=== PATIENT | female | born 1995 | race Caucasian/White ===

== ENCOUNTER 2023-08-19 07:40 | Inpatient (IN) | payer OTHER ==
[2023-08-19 09:17] VITALS: BMI 26.8
[2023-08-19] MEDS ORDERED: HYDROmorphone HCl 2 MG/ML VIAL ONE (10:39)
[2023-08-19] MEDS ORDERED: FENTANYL CITRATE/PF 50 MCG/ML VIAL ONE (10:39)
[2023-08-19] MEDS ORDERED: OXYTOCIN 30 UNITS in 0.9% NS 30 UNIT/500 ML INFUS.BAG IVPB ONE (10:39)
[2023-08-19] MEDS ORDERED: CITRIC ACID/SODIUM CITRATE 30 ML UNIT-DOSE CUP PO ONE (11:07)
[2023-08-19] MEDS ORDERED: ELECTROLYTE-148 SOLN 500 ML IV SCH (11:15)
[2023-08-19] MEDS ORDERED: ELECTROLYTE-148 SOLN 1,000 ML IV SCH (11:15)
[2023-08-19] MEDS ORDERED: ONDANSETRON 4 MG/2 ML VIAL ONE ×2 (11:24→14:17)
[2023-08-19] MEDS ORDERED: ceFAZolin SODIUM 1 GM VIAL ONE (11:29)
[2023-08-19] MEDS ORDERED: OXYTOCIN 10 UNITS/ML VIAL ONE (11:43)
[2023-08-19] MEDS ORDERED: KETOROLAC TROMETHAMINE 30 MG/1 ML VIAL ONE (12:04)
[2023-08-19] MEDS ORDERED: ACETAMINOPHEN 325 MG TABLET (FP) PO PRN (12:08)
[2023-08-19] MEDS ORDERED: METHYLERGONOVINE MALEATE 0.2 MG/1 ML AMP IM PRN (12:08)
[2023-08-19 13:00] LABS: CORD HCO3 27.3 mmHg (20-29); CORD PCO2 57.3 mmHg (30-78); CORD pH 7.296 (7.14-7.44)
[2023-08-19 13:02] LABS: CORD BASE EXCESS -2.7 mmol/L (0-2); CORD HCO3 23.3 mmHg (20-29); CORD PCO2 44.9 mmHg (30-78); CORD pH 7.333 (7.14-7.44)
[2023-08-19] MEDS ORDERED: OXYTOCIN 20 UNITS in 0.9% NS 20 UNIT/1,000 ML INFUS.BAG IV ONE (13:07)
[2023-08-19] MEDS ORDERED: METOCLOPRAMIDE HCL INJECTION 10 MG/2 ML VIAL ONE (13:16)
[2023-08-19] MEDS: OXYTOCIN 20 UNITS in 0.9% NS 20 UNIT/1,000 ML INFUS.BAG IV SCH (13:25)
[2023-08-19] MEDS ORDERED: METOCLOPRAMIDE HCL INJECTION 10 MG/2 ML VIAL IVPB ONE (13:45)
[2023-08-19] MEDS ORDERED: ONDANSETRON 4 MG/2 ML VIAL IVPB ONE (14:30)
[2023-08-19] MEDS ORDERED: SODIUM CHLORIDE 500 ML IV ONE (14:40)
[2023-08-19 16:02] LABS: BASO % 0.2 % (0-2.0); EOS % 0.2 % (0-4.5); HEMATOCRIT 41.5 % (32.4-45.2); HEMOGLOBIN 13.8 GM/dL (10.7-15.3); LYMPH % 16.2 % (8-40); MCHC 33.4 g/dl (32.0-36.0); MEAN PLT VOLUME 9.4 fl (7.5-11.1); MONO % 6.5 % (3.8-10.2); NEUT % 76.9 % (42.8-82.8); PLATELET COUNT 192 10^3/uL (134-434); RBC 4.77 M/mm3 (3.60-5.2); RDW 13.8 % (11.6-15.6); WHITE BLOOD COUNT 12.6 K/mm3 (4.0-10.0)
[2023-08-19] MEDS ORDERED: PROMETHAZINE HCL 25 MG/1 ML VIAL IVPB PRN (16:56)
[2023-08-19] MEDS ORDERED: ACETAMINOPHEN INJECTION 100 ML IVPB ONE (17:25)
[2023-08-19] MEDS: ACETAMINOPHEN 1000 MG/100 ML BAG IVPB PRN (17:35)
[2023-08-20] MEDS ORDERED: oxyCODONE HCL 5 MG TABLET PO PRN ×2 (00:08)
[2023-08-20] MEDS: OXYTOCIN 20 UNITS in 0.9% NS 20 UNIT/1,000 ML INFUS.BAG IV SCH (00:48)
[2023-08-20] MEDS: ACETAMINOPHEN 1000 MG/100 ML BAG IVPB PRN (05:23)
[2023-08-20 09:07] LABS: BASO % 0.3 % (0-2.0); EOS % 0.2 % (0-4.5); HEMATOCRIT 39.3 % (32.4-45.2); HEMOGLOBIN 13.4 GM/dL (10.7-15.3); MCHC 34.2 g/dl (32.0-36.0); MEAN CELL VOLUME 87.8 fl (80-96); MEAN PLT VOLUME 9.2 fl (7.5-11.1); MONO % 4.7 % (3.8-10.2); NEUT % 83.8 % (42.8-82.8); PLATELET COUNT 164 10^3/uL (134-434); RBC 4.47 M/mm3 (3.60-5.2); RDW 13.7 % (11.6-15.6); WHITE BLOOD COUNT 9.7 K/mm3 (4.0-10.0)
[2023-08-20] MEDS: ENOXAPARIN NA (PORCINE) 40 MG/0.4 ML DISP.SYRIN SQ SCH (10:06)
[2023-08-20] MEDS ORDERED: BISACODYL 10 MG SUPP.RECT RC PRN (12:08)
[2023-08-20] MEDS: IBUPROFEN 600 MG TABLET (FP) PO PRN ×2 (15:29→20:12)
[2023-08-20] MEDS: SIMETHICONE 80 MG TAB.CHEW (FP) PO PRN (20:12)
[2023-08-20 23:15] VITALS: RESP 18
[2023-08-21] MEDS: ENOXAPARIN NA (PORCINE) 40 MG/0.4 ML DISP.SYRIN SQ SCH (09:41)
[2023-08-21] MEDS: IBUPROFEN 600 MG TABLET (FP) PO PRN ×2 (09:41→20:13)
[2023-08-21] MEDS: SIMETHICONE 80 MG TAB.CHEW (FP) PO PRN ×2 (09:41→20:13)
[2023-08-22] MEDS: OXYTOCIN 20 UNITS in 0.9% NS 20 UNIT/1,000 ML INFUS.BAG IV SCH (07:19)
[2023-08-22 07:57] LABS: BASO % 0.3 % (0-2.0); HEMATOCRIT 38.5 % (32.4-45.2); LYMPH % 17.8 % (8-40); MCH 29.7 pg (25.7-33.7); MCHC 33.7 g/dl (32.0-36.0); MEAN CELL VOLUME 88.2 fl (80-96); MEAN PLT VOLUME 8.7 fl (7.5-11.1); MONO % 5.5 % (3.8-10.2); NEUT % 74.4 % (42.8-82.8); PLATELET COUNT 219 10^3/uL (134-434); RBC 4.37 M/mm3 (3.60-5.2); RDW 14.1 % (11.6-15.6); WHITE BLOOD COUNT 7.7 K/mm3 (4.0-10.0)
[2023-08-22 08:42] VITALS: BP 126/85; PULSE 74; TEMP 98
[2023-08-22] MEDS: ENOXAPARIN NA (PORCINE) 40 MG/0.4 ML DISP.SYRIN SQ SCH (09:15)
[2023-08-22] MEDS: IBUPROFEN 600 MG TABLET (FP) PO PRN (09:15)
== END 2023-08-22 18:20 | disposition home or self-care (01) | DRG 540 ==
LOC: JLDR 07:40 → J3W 20:24
PROVIDERS: ADMIT Obstetrics & Gynecology; ATTEND Obstetrics & Gynecology
PROC: 10D00Z1 Extraction of Products of Conception, Low, Open Approach (ICD-10-PCS; principal; 2023-08-19)
DX: O32.2XX0 Maternal care for transverse and oblique lie, not applicable or unspecified (principal); O48.0 Post-term pregnancy; O69.81X0 Labor and delivery complicated by cord around neck, without compression, not applicable or unspecified; Z3A.40 40 weeks gestation of pregnancy; Z37.0 Single live birth
CPT/HCPCS: 36415; 36600; 80053; 82803; 85025; 85610; 86780; 86850; 86900; 86901